=== PATIENT | female | born 1995 | race African-American/Black ===

== ENCOUNTER 2023-12-11 18:35 | Observation (INO) | payer OTHER, SELFPAY ==
[2023-12-11] VITALS (25 sets, daily range): BP systolic 105–203; BP diastolic 70–106; PULSE 68–96; RESP 16; TEMP 36.7; O2SAT 96–99; BMI 32.5
[2023-12-11 17:59] LABS: Basophils Percent Auto 0.1 % (0.2-1.2); Hematocrit 30.1 % (37.0-47.0); Hemoglobin 9.4 g/dL (12.0-15.0); Immature Granulocyte Absolute 0.06 K/mm3 (0.00-0.031); Immature Granulocyte Percent A 0.7 % (0-0.5); Lymphocytes Absolute Auto 1.15 K/mm3 (0.9-3.2); Lymphocytes Percent Auto 13.4 % (18.3-44.2); Mean Corpuscular HGB Conc 31.2 g/dl (32-36); Mean Corpuscular Hemoglobin 24.4 pg (26-34); Mean Platelet Volume 10.7 fl (7.4-10.4); Monocytes Absolute Auto 0.6 K/mm3 (0.1-0.6); Monocytes Percent Auto 7.1 % (2.6-8.5); Neutrophils Absolute Auto 6.7 K/mm3 (1.3-6.7); Neutrophils Percent Auto 78.7 % (45.5-73.1); Platelet Count Result 277 k/mm3 (150-375); Red Blood Count 3.86 M/mm3 (4.2-5.4); Red Cell Distribution Width 15.2 % (11.5-14.5); White Blood Count 8.6 K/mm3 (4.5-10.0)
[2023-12-11] MEDS: hydrALAZINE HCL 20 MG/ML VIAL 10 MG IV PUSH (18:02)
[2023-12-11 18:07] LABS: Appearance Urine Clear (Clear); Bacteria Urine None Seen /hpf; Bilirubin Urine Negative (Negative); Blood Urine Negative (Negative); Color Urine Yellow (Yellow); Glucose Urine UA Negative (Negative); Ketones Urine Negative (Negative); Leukocyte Esterase Ur 1+ LEU/UL (Negative); Nitrate Urine Negative (Negative); Non Pathogenic Casts 0-2; Protein Urine Negative (Negative); RBC Urine 0-2 /hpf (0-2); Specific Grav Ur 1.018 (1.001-1.035); Squamous Epithelial Cell Urine Few /hpf (Few)
[2023-12-11 18:08] LABS: Add Urine Microscopic? YES
[2023-12-11] MEDS: MAGNESIUM SULF 4 GM/WATER100ML 4 GM/100 ML BAG IVPB (18:11)
[2023-12-11] MEDS: LACTATED RINGERS 1,000 ML 75 ML IV CONT (18:11)
[2023-12-11 18:23] LABS: Creatinine Urine 97.5 mg/dL; Total Protein Urine Random 13 mg/dL; Ur Ttl Prot Creatinine Ratio 0.13 mg/mg (0-0.20)
[2023-12-11 18:33] LABS: Alanine Aminotransferase 16 U/L (6-35); Albumin Level 3.4 g/dL (3.5-5.1); Alkaline Phosphatase 136 U/L (38-126); Anion Gap 7 mmol/L (8-16); Aspartate Amino Transferase 28 U/L (14-36); Bilirubin,Total 0.4 mg/dL (0.2-1.3); Blood Urea Nitrogen 16 mg/dL (7-17); Calcium 8.5 mg/dL (8.4-10.2); Carbon Dioxide 18 mmol/L (22-30); Chloride 108 mmol/L (98-107); Estimated CRCL calculation 119 ml/min; Estimated Glomerular Filt Rate > 60; Glucose 106 mg/dL (65-110); Sodium 133 mmol/L (137-145); Uric Acid 4.6 mg/dL (2.5-7.5)
[2023-12-11] MEDS: MAGNESIUM SULF 20GM/WATER500ML 500 ML 50 MG IV CONT (18:40)
--- NOTE | 2023-12-11 18:45 | PM.IMHP ---
H&P: HPI History of Present Illness Date/Time: 12/11/23 18:45 Chief Complaint: elevated blood pressures Narrative: Patient is a 28 year old at 32.6 weeks gestation who presents from the office for elevated blood pressures. She has a history of chronic HTN, currently on labetalol 800mg TID which has been uptitrated throughout the . She was seen at [facility] on Thursday for elevated BPs, was given IV antihypertensives and BMZ, and discharged from the hospital after declined transfer to [facility]. She was then seen in the office today and again noted to have severe range blood pressures. She is asymptomatic. SHe was sent to [place] for further evaluation. Review of Systems Review of Systems: All systems reviewed & are unremarkable except as noted in HPI and below Meds Home Medications and Allergies Home Medications Medication Instructions Recorded Confirmed Type aspirin 81 mg tablet,delayed 81 mg PO DAILY 12/11/23 12/11/23 History release docusate sodium 100 mg capsule 100 mg PO DAILY PRN Constipation 12/11/23 12/11/23 History ferrous sulfate 325 mg (65 mg 325 mg PO DAILY 12/11/23 12/11/23 History iron) tablet labetalol 200 mg tablet 800 mg PO TID 12/11/23 12/11/23 History prenat.vits,tay,kgz-bewz-wiuqc 1 tablet PO DAILY 12/11/23 12/11/23 History Allergies Allergy/AdvReac Type Severity Reaction Status Date / Time No Known Allergies Allergy Verified 12/11/23 17:59 Vital Signs Vital Signs - 24 hr 12/11/23 17:28 12/11/23 17:51 12/11/23 18:00 Temperature Pulse Rate 74 73 68 Respiratory Rate Blood Pressure 189/106 H 203/95 H 178/91 H Pulse Oximetry Oxygen Delivery 12/11/23 18:09 12/11/23 18:20 12/11/23 18:30 Temperature Pulse Rate 71 82 86 Respiratory Rate Blood Pressure 174/82 H 154/77 H 156/81 H Pulse Oximetry Oxygen Delivery 12/11/23 18:40 12/11/23 18:42 12/11/23 17:45 Temperature Pulse Rate 91 Respiratory Rate Blood Pressure 130/79 Pulse Oximetry 96 Oxygen Delivery Room Air 12/11/23 18:41 12/11/23 18:45 Temperature 98.0 F 98.0 F Pulse Rate 94 94 Respiratory Rate 16 16 Blood Pressure 130/79 Pulse Oximetry 97 96 Oxygen Delivery Exam Const: General: comfortable and no acute distress HENMT: Mouth: Yes moist mucous membranes Eyes: General: appearance normal, both eyes and all related structures Neck: Neck: supple Resp: Effort & Inspection: normal respiratory effort Cardio: Rate: regular rate GI: Inspection: non-distended Skin: General skin exam: normal color Neuro: General: deep tendon reflexes 2+ bilaterally Extrem: General: normal to inspection Psych: Mental Status: mental status grossly normal H&P: Results Labs Labs: Short CBC 12/11/23 Range/Units 17:29 WBC 8.6 (4.5-10.0) K/mm3 Hgb 9.4 L (12.0-15.0) g/dL Hct 30.1 L (37.0-47.0) % Plt Count 277 (150-375) k/mm3 BMP 12/11/23 17:29 Sodium 133 L Potassium 4.0 Chloride 108 H Carbon Dioxide 18 L BUN 16 Creatinine 0.60 L Glucose 106 Calcium 8.5 Liver Function 12/11/23 Range/Units 17:29 Total Bilirubin 0.4 (0.2-1.3) mg/dL AST 28 (14-36) U/L ALT 16 (6-35) U/L Alkaline Phosphatase 136 H (38-126) U/L Albumin 3.4 L (3.5-5.1) g/dL Urine 12/11/23 Range/Units 17:29 Urine Color Yellow (Yellow) Urine Appearance Clear (Clear) Urine pH 6.0 (5.0-9.0) Ur Specific [place] 1.018 (1.001-1.035) Urine Protein Negative (Negative) mg/dL Urine Glucose (UA) Negative (Negative) mg/dL Assessment and Plan Assessment and plan (1) Preeclampsia complicating hypertension: Code(s): O11.9 - Pre-existing hypertension with pre-eclampsia, unspecified trimester Status: Acute Assessment and Plan: Pre eclampsia with severe features ? - Severe by BP ? - BP since admission: 150-200s/90s-100s ? - Michael
--- NOTE | 2023-12-11 19:03 | PM.TDS ---
Transfer Discharge Sum: Prov Provider Date of admission: 12/11/23 18:35 Primary care physician: UNKNOWN,DOCTOR Admitting clinician: Krishna Gould MD Attending physician on discharge: Krishna Gould Discharging clinician: Krishna Gould Anticipated date of transfer: 12/11/23 Receiving physician/facility: [facility] [place] DS: Admitting Diagnosis Discharge Date 12/11/23 Admitting Diagnosis preeclampsia with severe features DS: Discharge Diagnosis Discharge Diagnosis (1) Preeclampsia complicating hypertension: Code(s): O11.9 - Pre-existing hypertension with pre-eclampsia, unspecified trimester Status: Acute Assessment and Plan: ? - Severe by BP ? - BP since admission: 150-200s/90s-100s ? - Denies [place], vision changes, SOB, RUQ pain ? - Labs: wnl, PC 0.13 ? - known hx of cHTN ? - Maintenance medication: labetalol 800 TID ? - Acute antihypertensives: hydral 10 x1 ? - MgSO4 started for seizure prophylaxis, continue through transfer and evaluation ? - BMZ opt 12/11 at 2005 (2) Chronic hypertension affecting : Code(s): O10.919 - Unspecified pre-existing hypertension complicating , unspecified trimester Status: Acute (3) Cervical cerclage suture present: Code(s): O34.30 - Maternal care for cervical incompetence, unspecified trimester Status: Acute Assessment and Plan: Exam indicated cerclage 09/2023 (4) Hx of section: Code(s): Z98.891 - History of uterine scar from previous surgery Status: Acute Assessment and Plan: unsure of delivery preference Transfer Discharge Sum: Med Medications Active and Home Medications: Home Medications aspirin 81 mg tablet,delayed release 81 mg PO DAILY 12/11/23 [History Confirmed 12/11/23] docusate sodium 100 mg capsule 100 mg PO DAILY PRN Constipation 12/11/23 [History Confirmed 12/11/23] ferrous sulfate 325 mg (65 mg iron) tablet 325 mg PO DAILY 12/11/23 [History Confirmed 12/11/23] labetalol 200 mg tablet 800 mg PO TID 12/11/23 [History Confirmed 12/11/23] prenat.vits,tay,fny-olha-tnsus 1 tablet PO DAILY 12/11/23 [History Confirmed 12/11/23] Active Medications Hydralazine HCl (Hydralazine Hcl 20 Mg/Ml Vial) 10 mg IV PUSH ONCE PRN PRN Reason: SBP >/= 160 or DBP >/= 110 Last Admin: 12/11/23 18:02 Dose: 10 mg Hydralazine HCl (Hydralazine Hcl 20 Mg/Ml Vial) 10 mg IV PUSH ONCE PRN PRN Reason: SBP >/= 160 or DBP >/= 110 Magnesium Sulfate (Magnesium Sulf 20gm/[id number]) 500 mls @ 50 mls/hr IV CONT .Q10H [facility] [place] Last Admin: 12/11/23 18:40 Dose: 50 mls/hr Lactated Ringer's (Lr - Lactated Ringers Iv) 1,000 mls @ 75 mls/hr IV CONT .[id number] [facility] [place] Last Admin: 12/11/23 18:11 Dose: 75 mls/hr Labetalol HCl (Labetalol Hcl Inj 100 Mg/20 Ml Vial) 20 mg IV PUSH ONCE PRN PRN Reason: SBP >/= 160 or DBP >/= 110 Labetalol HCl (Labetalol Hcl Inj 100 Mg/20 Ml Vial) 40 mg IV PUSH ONCE PRN PRN Reason: SBP >/= 160 or DBP >/= 110 Labetalol HCl (Labetalol Hcl Inj 100 Mg/20 Ml Vial) 80 mg IV PUSH ONCE PRN PRN Reason: SBP >/= 160 or DBP >/= 110 Transfer Discharge Sum: Hosp Hospital Course Hospital course: Patient is a 28 year old at 32.6 weeks gestation who presents from the office for elevated blood pressures. She has a history of chronic HTN, currently on labetalol 800mg TID which has been uptitrated throughout the . She was seen at [facility] on Thursday for elevated BPs, was given IV antihypertensives and BMZ, and discharged from the hospital after declined transfer to [facility]. She was then seen in the office today and again noted to have severe range blood pressures. She is asymptomatic. SHe was sent to [place] for further evaluation. BP was severe range on admission which stabilized after hydral 10mg IV. Asymptomatic, labs wnl. Meets criteria for cHTN with superim
== END 2023-12-11 20:00 | disposition short-term general hospital (02) ==
LOC: ANHOBOP 18:42 → ANHOBPP 18:42
PROVIDERS: Admitting Provider Obstetrics & Gynecology; Visit Provider Obstetrics & Gynecology
DX: O11.3 Pre-existing hypertension with pre-eclampsia, third trimester (principal); O34.33 Maternal care for cervical incompetence, third trimester; O34.29 Maternal care due to uterine scar from other previous surgery; Z3A.32 32 weeks gestation of pregnancy; Z79.82 Long term (current) use of aspirin; Z79.899 Other long term (current) drug therapy
CPT/HCPCS: 36415; 80053; 81001; 82570; 84156; 84550; 85025; 87086; 96374; 96375; G0378; G0379; J0360; J3475; J7120